=== PATIENT | female | born 1990 | race Caucasian/White ===

== ENCOUNTER → 2016-10-04 | Outpatient (CLI) | payer OTHER ==
--- NOTE | 2016-10-04 17:29 | US ---
EXAMINATION TYPE: US venous doppler duplex LE LT DATE OF EXAM: 10/04/2016 4:51 PM COMPARISON: 10/12/2013 rt venous CLINICAL HISTORY: LLE Swelling R22.42, Hx of DVT V12.51. SIDE PERFORMED: Left TECHNIQUE: The lower extremity deep venous system is examined utilizing real time linear array sonog maverick with graded compression, doppler sonography and color-flow sonography. VESSELS IMAGED: External Iliac Vein (EIV) Common Femoral Vein Deep Femoral Vein Greater Saphenous Vein * Femoral Vein Popliteal Vein (* superficial vessels) Left Leg: Negative for DVT IMPRESSION: Grayscale, color doppler, spectral doppler imaging performed of the deep veins of the lo wer extremities. There is normal flow, compressibility, vascular waveforms bilaterally. No evidence of deep venous thrombosis in the left leg.
== END | disposition home or self-care (01) ==
LOC: RADUSMAIN 16:07
PROVIDERS: ATTEND Internal Medicine
DX: R22.42 Localized swelling, mass and lump, left lower limb (principal); Z86.718 Personal history of other venous thrombosis and embolism

== ENCOUNTER 2017-08-17 13:50 | Emergency (ER) | payer OTHER ==
[2017-08-17 13:53] VITALS: BP 133/89; PULSE 89; RESP 20; TEMP 98.1
[2017-08-17] MEDS ORDERED: KETOROLAC 30 MG/ML 1 ML VIAL IM STA (14:38)
--- NOTE | 2017-08-17 14:39 | ED ---
Skin/Abscess/FB HPI - General Chief complaint: Skin/Abscess/Foreign Body Stated complaint: Lump in Arm pit Time Seen by Provider: 08/17/17 14:00 Source: patient Mode of arrival: ambulatory Limitations: no limitations - History of Present Illness Initial comments: Patient is a 26-year-old female presenting for abscess in the right arm. She states that she has "HS" and that for the last 3 days, she has had this lesion on the right axilla. She denies any fevers or chills states that this is happened before and usually bear incised and drained and given Keflex. - Related Data Home Medications Medication Instructions Recorded Confirmed Levothyroxine Sodium [Synthroid] 50 mcg PO DAILY 09/18/13 03/07/16 Acetaminophen Tab [Tylenol Tab] 1,000 mg PO Q6HR PRN 03/07/16 03/07/16 Previous Rx's Medication Instructions Recorded Ondansetron Odt [Zofran Odt] 4 mg PO Q8HR PRN #10 tab 03/07/16 Clindamycin HCl 300 mg PO Q12HR 7 Days #14 cap 08/17/17 Allergies Allergy/AdvReac Type Severity Reaction Status Date / Time No Known Allergies Allergy Verified 08/17/17 13:53 Review of Systems ROS Statement: Those systems with pertinent positive or pertinent negative responses have been documented in the HPI. Constitutional: Negative for chills, fatigue and fever. HENT: Negative for congestion. Respiratory: Negative for chest tightness, shortness of breath and wheezing. Negative for cough Cardiovascular: Negative for chest pain and palpitations. Gastrointestinal: Negative for abdominal pain. Negative for abdominal distention , diarrhea, nausea and vomiting. Genitourinary: Negative for dysuria. Musculoskeletal: Negative for back pain, neck pain and neck stiffness. Skin: Positive for abscess the right adnexal. Neurological: Negative for dizziness, speech difficulty, weakness and light- headedness. Psychiatric/Behavioral: Negative for agitation and confusion. The patient is not nervous/anxious. ROS Other: All systems not noted in ROS Statement are negative. Past Medical History Past Medical History: Deep Vein Thrombosis (DVT), Thyroid Disorder History of Any Multi-Drug Resistant Organisms: None Reported Past Surgical History: Section Past Psychological History: No Psychological Hx Reported Smoking Status: Never smoker Past Alcohol Use History: None Reported Past Drug Use History: None Reported General Exam - General Exam Comments Initial Comments: Constitutional: Pt is oriented to person, place, and time. Pt appears well- developed and well-nourished. No distress. HENT: Head: Normocephalic and atraumatic. Eyes: EOM are normal. Neck: Normal range of motion. Neck supple. Cardiovascular: Normal rate, regular rhythm, S1 normal, S2 normal and normal heart sounds. Exam reveals no gallop and no friction rub. No murmur heard. Pulmonary/Chest: Effort normal and breath sounds normal. No tachypnea and no bradypnea. No respiratory distress. No wheezes or rales noted. Abdominal: Soft. Bowel sounds are normal. Pt exhibits no shifting dullness, no distension, no pulsatile liver, no fluid wave, no abdominal bruit and no ascites. There is no tenderness. There is no rigidity, no rebound, no guarding, no tenderness at McBurney's point and negative White's sign. Musculoskeletal: Normal range of motion. Neurological: Pt is alert and oriented to person, place, and time. No cranial nerve deficit. Skin: Skin is warm and dry. No rash noted. Pt is not diaphoretic. Abscess measuring 5 mm in diameter in the right axilla. There is minimal fluctuance and mild erythema in the surrounding tissue. No evidence of deep tissue infection. Psychiatric: Pt has a normal mood and affect. Pt behavior is normal. Thought content normal. Limitations: no limitations Course Vital Signs 08/17/17 13:52 Temperature 98.1 F Pulse Rate 89 Respiratory 20 Rate Blood Pressure 133/89 O2 Sat by Pulse 100 Oximetry Procedures - Incision & Drainage Consent Obtained: verbal consent Time Out Performed?: Yes Site: other Size (cm): 1 Anesthetic Used: lidocaine 1% Amount (mLs): 2 I&D Cleaning Method: Chloroprep Sterile Field Used?: Yes Scalpel Used: #11 Needle Aspiration Performed?: No Irrigation Performed?: Yes I&D Drainage Obtained: Pus, Blood Packing: Plain Culture Obtained?: No Patient Tolerated Procedure: well (At), no complications Medical Decision Making - Medical Decision Making I&D was performed as noted in the procedure note. Patient was given a prescription for Keflex. There is no overt signs of sepsis in patient was advised to follow up with PCP in the next 1-2 days. Patient was agreeable plan. Disposition Clinical Impression: Abscess of axilla, right Disposition: HOME SELF-CARE Condition: Good Instructions: Abscess Incision and Drainage (ED) Prescriptions: Clindamycin HCl 300 mg PO Q12HR 7 Days #14 cap Is patient prescribed a controlled substance at d/c from ED?: No Referrals: Erica Blair MD [Primary Care Provider] - 1-2 days Time of Disposition: 14:38
== END 2017-08-17 14:54 | disposition home or self-care (01) ==
LOC: EC 13:50
DX: L02.411 Cutaneous abscess of right axilla (principal); E07.9 Disorder of thyroid, unspecified; Z79.899 Other long term (current) drug therapy
CPT/HCPCS: 99283; 10060; 96372; J1885

== ENCOUNTER 2018-01-05 17:33 | Emergency (ER) | payer OTHER ==
[2018-01-05] MEDS ORDERED: KETOROLAC 30 MG/ML 1 ML VIAL IVP STA (18:11)
[2018-01-05] MEDS ORDERED: ONDANSETRON 4 MG/2 ML VIAL IVP STA (18:11)
[2018-01-05] MEDS ORDERED: SODIUM CHLORIDE 0.9% 1,000 ML IV STA (18:11)
--- NOTE | 2018-01-05 18:14 | ED ---
General Adult HPI - General Chief complaint: Abdominal Pain Stated complaint: Vomiting/ca pt Time Seen by Provider: 01/05/18 18:02 Source: patient, RN notes reviewed Mode of arrival: ambulatory Limitations: no limitations - History of Present Illness Initial comments: This is a 27-year-old female who presents to the emergency department with chief complaint of nausea and vomiting. Patient states that she was diagnosed with cervical cancer in May. She states she started oral chemotherapy treatment 2 weeks ago at [facility]. Patient states that she worked last night. When she woke up this afternoon she felt nauseous and had a headache. She reports having 4 episodes of vomiting throughout the day today. Denies any fevers or chills, chest pain or shortness of breath, abdominal pain, dysuria or hematuria. Patient states she took Advil but it did not help her headache. - Related Data Home Medications Medication Instructions Recorded Confirmed Levothyroxine Sodium [Synthroid] 50 mcg PO DAILY 09/18/13 03/07/16 Acetaminophen Tab [Tylenol Tab] 1,000 mg PO Q6HR PRN 03/07/16 03/07/16 Previous Rx's Medication Instructions Recorded Ondansetron Odt [Zofran Odt] 4 mg PO Q8HR PRN #10 tab 03/07/16 Clindamycin HCl 300 mg PO Q12HR 7 Days #14 cap 08/17/17 Allergies Allergy/AdvReac Type Severity Reaction Status Date / Time No Known Allergies Allergy Verified 01/05/18 17:41 Review of Systems ROS Statement: Those systems with pertinent positive or pertinent negative responses have been documented in the HPI. ROS Other: All systems not noted in ROS Statement are negative. Past Medical History Past Medical History: Deep Vein Thrombosis (DVT), Thyroid Disorder Additional Past Medical History / Comment(s): cervical cancer (May 2017) History of Any Multi-Drug Resistant Organisms: None Reported Past Surgical History: Section, Tubal Ligation Past Psychological History: No Psychological Hx Reported Smoking Status: Never smoker Past Alcohol Use History: None Reported Past Drug Use History: None Reported General Exam - General Exam Comments Initial Comments: General: Awake and alert, well-developed; in no apparent distress. Sitting comfortably on ED stretcher with lights dimmed. HEENT: Head atraumatic, normocephalic. Pupils are equal, round and reactive to light. Extraocular movements intact. Oropharynx moist without erythema or exudate. Neck: Supple. Normal ROM. Cardiovascular: Regular rate and rhythm. No murmurs, rubs or gallops. Chest symmetrical. Respiratory: Lungs clear to auscultation bilaterally. No wheezes, rales or rhonchi. Normal respiratory effort with no use of accessory muscles. Abdomen: Soft, non-tender, non-distended. No rigidity, rebound or guarding. Normal bowel sounds in all 4 quadrants. Musculoskeletal: Normal ROM, no tenderness bilateral upper and lower extremities. Skin: [place], warm and dry without rashes or lesions. Neurological: Alert and oriented x3. CN II-XII grossly intact. Speech is fluent and answers are appropriate. No focal neuro deficits. Psychiatric: Normal mood and affect. No overt signs of depression or anxiety noted. Limitations: no limitations Course Vital Signs 01/05/18 17:38 Temperature 98.2 F Pulse Rate 82 Respiratory 18 Rate Blood Pressure 154/97 O2 Sat by Pulse 98 Oximetry Medical Decision Making - Medical Decision Making This is a 27-year-old female who presents to the emergency department with chief complaint of nausea and vomiting. Patient started chemotherapy for cervical cancer 2 weeks ago. She has had 1 round of oral chemo. She states that today she developed a headache, nausea and vomiting. Patient given fluids , toradol and zofran. CBC reveals a hemoglobin of 10.5 which is consistent with previous lab studies. UA and CMP are unremarkable. Patient reports significant improvement in her symptoms and is ready to be discharged home. Vital signs are stable and she is in no acute distress. Recommended she follow up with her oncologist tomorrow. She is in agreement and voices understanding. All questions were answered. - Lab Data Result diagrams: 01/05/18 18:45 01/05/18 18:45 Lab Results 01/05/18 01/05/18 01/05/18 Range/Units 18:45 18:45 19:05 WBC 8.6 (3.8-10.6) k/uL RBC 4.46 (3.80-5.40) m/uL Hgb 10.5 L (11.4-16.0) gm/dL Hct 32.3 L (34.0-46.0) % MCV 72.4 L (80.0-100.0) fL MCH 23.5 L (25.0-35.0) pg MCHC 32.4 (31.0-37.0) g/dL RDW 18.1 H (11.5-15.5) % Plt Count 395 (150-450) k/uL Neutrophils % 82 % Lymphocytes % 12 % Monocytes % 4 % Eosinophils % 1 % Basophils % 0 % Neutrophils # 7.0 (1.3-7.7) k/uL Lymphocytes # 1.1 (1.0-4.8) k/uL Monocytes # 0.3 (0-1.0) k/uL Eosinophils # 0.1 (0-0.7) k/uL Basophils # 0.0 (0-0.2) k/uL Hypochromasia Moderate Anisocytosis Slight Microcytosis Moderate Sodium 138 (137-145) mmol/L Potassium 4.4 (3.5-5.1) mmol/L Chloride 108 H (98-107) mmol/L Carbon Dioxide 24 (22-30) mmol/L Anion Gap 6 mmol/L BUN 13 (7-17) mg/dL Creatinine 0.75 (0.52-1.04) mg/dL Est GFR (CKD-EPI)AfAm >90 (>60 ml/min/1.73 sqM) Est GFR (CKD-EPI)NonAf >90 (>60 ml/min/1.73 sqM) Glucose 97 (74-99) mg/dL Calcium 9.2 (8.4-10.2) mg/dL Total Bilirubin 0.4 (0.2-1.3) mg/dL AST 28 (14-36) U/L ALT 22 (9-52) U/L Alkaline Phosphatase 79 (38-126) U/L Total Protein 7.6 (6.3-8.2) g/dL Albumin 4.2 (3.5-5.0) g/dL Urine Color Light Yellow Urine Appearance Cloudy H (Clear) Urine pH 5.5 (5.0-8.0) Ur Specific [place] 1.007 (1.001-1.035) Urine Protein Negative (Negative) Urine Glucose (UA) Negative (Negative) Urine Ketones Negative (Negative) Urine Blood Negative (Negative) Urine Nitrite Negative (Negative) Urine Bilirubin Negative (Negative) Urine Urobilinogen <2.0 (<2.0) mg/dL Ur Leukocyte Esterase Trace H (Negative) Urine RBC 1 (0-5) /hpf Urine WBC 4 (0-5) /hpf Ur Squamous Epith Cells 5 H (0-4) /hpf Urine Bacteria Rare H (None) /hpf Urine Mucus Rare H (None) /hpf Disposition Clinical Impression: Nausea and vomiting Disposition: HOME SELF-CARE Condition: Good Instructions: Acute Nausea and Vomiting (ED), Chemo Induced Nausea and Vomiting (ED) Additional Instructions: As discussed, please follow-up with your oncologist tomorrow morning. Please follow up with primary care provider within 1-2 days. Return to emergency department if symptoms should worsen or any concerns arise. Is patient prescribed a controlled substance at d/c from ED?: No Referrals: Erica Blair MD [Primary Care Provider] - 1-2 days Time of Disposition: 19:42
[2018-01-05 19:07] LABS: Anisocytosis Slight; Basophils % (A) 0 %; Eosinophils # (A) 0.1 k/uL (0-0.7); Eosinophils % (A) 1 %; HCT 32.3 % (34.0-46.0); HGB 10.5 gm/dL (11.4-16.0); Hypochromasia Moderate; Lymphocytes # (A) 1.1 k/uL (1.0-4.8); Lymphocytes % (A) 12 %; MCH 23.5 pg (25.0-35.0); MCHC 32.4 g/dL (31.0-37.0); MCV 72.4 fL (80.0-100.0); Mean Platelet Volume 6.4; Microcytosis Moderate; Monocytes # (A) 0.3 k/uL (0-1.0); Monocytes % (A) 4 %; Neutrophils % (A) 82 %; Platelet Count 395 k/uL (150-450); RBC 4.46 m/uL (3.80-5.40); RDW 18.1 % (11.5-15.5); WBC 8.6 k/uL (3.8-10.6)
[2018-01-05 19:19] LABS: ALT 22 U/L (9-52); AST 28 U/L (14-36); Albumin 4.2 g/dL (3.5-5.0); Alkaline Phosphatase 79 U/L (38-126); Anion Gap 6 mmol/L; Blood Urea Nitrogen 13 mg/dL (7-17); Calcium 9.2 mg/dL (8.4-10.2); Carbon Dioxide 24 mmol/L (22-30); Chloride 108 mmol/L (98-107); Glucose 97 mg/dL (74-99); Potassium 4.4 mmol/L (3.5-5.1); Sodium 138 mmol/L (137-145); Total Bilirubin 0.4 mg/dL (0.2-1.3); Total Protein 7.6 g/dL (6.3-8.2)
[2018-01-05 19:28] LABS: Appearance,Urine Cloudy (Clear); Bacteria,Urine Rare /hpf; Bilirubin,Urine Negative (Negative); Blood,Urine Negative (Negative); Color,Urine Light Yellow; Glucose,Urine (UA) Negative (Negative); Ketones,Urine Negative (Negative); Leukocyte Esterase,Urine Trace (Negative); Mucus,Urine Rare /hpf; Nitrite,Urine Negative (Negative); PH, Urine 5.5 (5.0-8.0); Protein,Urine Negative (Negative); RBC,Urine 1 /hpf (0-5); Specific Gravity,Urine 1.007 (1.001-1.035); Squamous Epithelial Cell,Urine 5 /hpf (0-4); Urobilinogen,Urine <2.0 mg/dL (<2.0); WBC,Urine 4 /hpf (0-5)
[2018-01-05 19:59] VITALS: BP 148/80; PULSE 88; RESP 16; TEMP 97.3
== END 2018-01-05 19:58 | disposition home or self-care (01) ==
LOC: EC 17:33
DX: R11.2 Nausea with vomiting, unspecified (principal); R51 Headache; E07.9 Disorder of thyroid, unspecified; Z85.41 Personal history of malignant neoplasm of cervix uteri; Z79.899 Other long term (current) drug therapy
CPT/HCPCS: 99284; 96374; 96375; 96361; 36415; 80053; 85025; 81001; J2405; J1885

== ENCOUNTER 2018-01-20 07:49 | Emergency (ER) | payer OTHER ==
[2018-01-20 07:57] VITALS: BP 144/94; PULSE 90; RESP 16; TEMP 98
--- NOTE | 2018-01-20 08:24 | ED ---
General Adult HPI - General Chief complaint: Upper Respiratory Infection Stated complaint: cough, headache Time Seen by Provider: 01/20/18 07:59 Source: patient, RN notes reviewed Mode of arrival: ambulatory Limitations: no limitations - History of Present Illness Initial comments: Patient 27-year-old female presented to the emergency room today with a chief complaint of cough congestion over the last 2 weeks. Mother does admit that she had cough congestion with fever starting 2 weeks ago. She states fevers, weight but she still left with the cough congestion and feeling of swollen glands. Patient does admit that she cough has been dry at this time. She denies any nausea vomiting currently. Denies any current temperatures. States appetites been well. States that her son has similar symptoms at home. Denies any other complaints. Patient denies any recent shortness of breath, chest pain , back pain, abdominal pain, nausea or vomiting, numbness or tingling, headaches or visual changes, or any other complaints. - Related Data Home Medications Medication Instructions Recorded Confirmed Ferrous Sulfate [Feosol] 325 mg PO DAILY 01/20/18 01/20/18 Levothyroxine Sodium [Synthroid] 75 mcg PO DAILY 01/20/18 01/20/18 Vitamin C/Biotin [Hair, Skin and 1 tab PO DAILY 01/20/18 01/20/18 Nails] Previous Rx's Medication Instructions Recorded Benzonatate [Tessalon Perles] 100 mg PO TID PRN #20 capsule 01/20/18 Allergies Allergy/AdvReac Type Severity Reaction Status Date / Time No Known Allergies Allergy Verified 01/20/18 08:12 Review of Systems ROS Statement: Those systems with pertinent positive or pertinent negative responses have been documented in the HPI. ROS Other: All systems not noted in ROS Statement are negative. Past Medical History Past Medical History: Deep Vein Thrombosis (DVT), Thyroid Disorder Additional Past Medical History / Comment(s): cervical cancer (May 2017) History of Any Multi-Drug Resistant Organisms: None Reported Past Surgical History: Section, Tubal Ligation Past Psychological History: No Psychological Hx Reported Smoking Status: Never smoker Past Alcohol Use History: None Reported Past Drug Use History: None Reported General Exam - General Exam Comments Initial Comments: General: The patient is awake and alert, in no distress, and does not appear acutely ill. Eye: Pupils are equal, round and reactive to light. Extra-ocular movements are intact. No nystagmus. There is normal conjunctiva bilaterally. No signs of icterus. Ears, nose, mouth and throat: There are moist mucous membranes and no oral lesions. Neck: The neck is supple, there is no tenderness or JVD. Cardiovascular: There is a regular rate and rhythm. No murmur, rub or gallop is appreciated. Respiratory: Lungs are clear to auscultation, respirations are non-labored, breath sounds are equal. No wheezes, stridor, rales, or rhonchi. Musculoskeletal: Normal ROM, no tenderness. Sensation intact. Strength 5/5. Pulses equal bilaterally 2+. Neurological: A&O x 3. CN II-XII intact, There are no obvious motor or sensory deficits. Coordination appears grossly intact. Speech is normal. Skin: Skin is warm and dry and no rashes or lesions are noted. Psychiatric: Cooperative, appropriate mood & affect, normal judgment. Limitations: no limitations Course Vital Signs 01/20/18 07:54 Temperature 98.0 F Pulse Rate 90 Respiratory 16 Rate Blood Pressure 144/94 O2 Sat by Pulse 98 Oximetry Medical Decision Making - Medical Decision Making Chest x-ray negative. Patient was given dose of steroids here in the emergency room advised to continue HOME. Disposition Clinical Impression: Upper respiratory infection Disposition: HOME SELF-CARE Condition: Good Instructions: Upper Respiratory Infection (ED) Additional Instructions: Please use medication as discussed. Please follow-up with family doctor in the next 2 days of symptoms have not improved. Please return to emergency room if the symptoms increase or worsen or for any other concerns. Prescriptions: Benzonatate [Tessalon Perles] 100 mg PO TID PRN #20 capsule PRN Reason: Cough Is patient prescribed a controlled substance at d/c from ED?: No Referrals: Erica Blair MD [Primary Care Provider] - 1-2 days Time of Disposition: 09:00
--- NOTE | 2018-01-20 08:26 | XR ---
EXAMINATION TYPE: XR chest 2V DATE OF EXAM: 01/20/2018 COMPARISON: 02/07/2015 HISTORY: Cough and congestion TECHNIQUE: Frontal and lateral views of the chest are obtained. FINDINGS: Overlying soft tissues partially through the lower lobes and creating increased hazy densi ty, however no focal opacity seen on the lateral view. There is no focal air space opacity, pleural e ffusion, or pneumothorax seen. The cardiac silhouette size is within normal limits. The osseous st ructures are intact. IMPRESSION: No acute cardiopulmonary process.
[2018-01-20] MEDS ORDERED: DEXAMETHASONE SOD PHOSPHATE 10 MG/ML 1 ML VIAL PO STA (08:59)
== END 2018-01-20 09:45 | disposition home or self-care (01) ==
LOC: EC 07:49
DX: J06.9 Acute upper respiratory infection, unspecified (principal); E07.9 Disorder of thyroid, unspecified; Z79.899 Other long term (current) drug therapy
CPT/HCPCS: 71046; 99284; J1100

== ENCOUNTER 2018-02-19 09:44 | Emergency (ER) | payer OTHER ==
[2018-02-19 09:54] VITALS: BP 122/81; PULSE 97; RESP 18; TEMP 97.8
[2018-02-19] MEDS ORDERED: KETOROLAC 60 MG/2 ML VIAL IM STA (10:26)
--- NOTE | 2018-02-19 10:32 | ED ---
Lower Extremity Injury HPI - General Chief Complaint: Extremity Injury, Lower Stated Complaint: RT SAMSON PAIN Time Seen by Provider: 02/19/18 10:19 Source: patient, RN notes reviewed Mode of arrival: ambulatory Limitations: no limitations - History of Present Illness Initial Comments: 27-year-old female presents emergency Department chief complaint of right knee pain. Patient states has been painful for last 3 weeks. Patient states is worse with movement better at rest. She is concern as she's had 2 prior DVTs only when she was . Patient denies any chest or shortness breath. Denies any swelling or redness to her right leg. Patient states that she feels pain from above and below her knee. Patient does admit that she is a [facility] [employer] states that she constantly is up-and-down, kneeling down on her knees which makes his symptoms worse. Patient's been taking Tylenol and Motrin nothing this morning but has not been helping. - Related Data Home Medications Medication Instructions Recorded Confirmed Ibuprofen [Advil] 400 mg PO Q8HR PRN 02/19/18 02/19/18 Levothyroxine Sodium [Synthroid] 25 mcg PO DAILY 02/19/18 02/19/18 Previous Rx's Medication Instructions Recorded Ibuprofen [Motrin] 600 mg PO Q8HR PRN #30 tab 02/19/18 Allergies Allergy/AdvReac Type Severity Reaction Status Date / Time No Known Allergies Allergy Verified 02/19/18 10:57 Review of Systems ROS Statement: Those systems with pertinent positive or pertinent negative responses have been documented in the HPI. ROS Other: All systems not noted in ROS Statement are negative. Past Medical History Past Medical History: Deep Vein Thrombosis (DVT), Thyroid Disorder Additional Past Medical History / Comment(s): cervical cancer (May 2017) History of Any Multi-Drug Resistant Organisms: None Reported Past Surgical History: Section, Tubal Ligation Past Psychological History: No Psychological Hx Reported Smoking Status: Never smoker Past Alcohol Use History: None Reported Past Drug Use History: None Reported General Exam General appearance: alert, in no apparent distress Head exam: Present: atraumatic, normocephalic, normal inspection Respiratory exam: Present: normal lung sounds bilaterally. Absent: respiratory distress, wheezes, rales, rhonchi, stridor Cardiovascular Exam: Present: regular rate, normal rhythm, normal heart sounds. Absent: systolic murmur, diastolic murmur, rubs, gallop, clicks Extremities exam: Present: other (Right leg for range of motion neurovascular intact pedal pulses equal bilaterally Refill less than 2 seconds there is no laxity there is diffuse tenderness of the right knee primarily in the posterior aspect. There is mild upper calf tenderness.) Skin exam: Present: warm, dry, intact, normal color. Absent: rash Course Vital Signs 02/19/18 09:49 Temperature 97.8 F Pulse Rate 97 Respiratory 18 Rate Blood Pressure 122/81 O2 Sat by Pulse 100 Oximetry Medical Decision Making - Medical Decision Making 19-year-old female presented emergency from for right knee pain. Concern for possible DVT all child was day negative for acute DVT. Patient is right knee sprain. Patient will follow-up with orthopedics. Return parameters were provided Disposition Clinical Impression: Strain of right knee Disposition: HOME SELF-CARE Condition: Stable Instructions: Knee Pain (ED), Knee Sprain (ED) Additional Instructions: Please return to the Emergency Department if symptoms worsen or any other concerns. Prescriptions: Ibuprofen [Motrin] 600 mg PO Q8HR PRN #30 tab PRN Reason: Pain Is patient prescribed a controlled substance at d/c from ED?: No Referrals: Jim Mchugh Jr, DO [Primary Care Provider] - 1-2 days Sean Villagran MD [STAFF PHYSICIAN] - 1-2 days Time of Disposition: 11:38
--- NOTE | 2018-02-19 11:07 | XR ---
EXAMINATION TYPE: XR knee complete RT DATE OF EXAM: 02/19/2018 COMPARISON: None HISTORY: Pain TECHNIQUE: Three-view right knee FINDINGS: No acute fractures are evident. Joint spaces are preserved. No joint effusion is evident. S oft tissues are normal. IMPRESSION: 1. Normal three-view right knee
--- NOTE | 2018-02-19 11:32 | US ---
EXAMINATION TYPE: US venous doppler duplex LE RT DATE OF EXAM: 02/19/2018 11:26 AM COMPARISON: US 2013 CLINICAL HISTORY: Pain. Right knee pain x 3 weeks, history of right leg DVT 2012 and 2008 SIDE PERFORMED: Right TECHNIQUE: The lower extremity deep venous system is examined utilizing real time linear array sonog maverick with graded compression, doppler sonography and color-flow sonography. VESSELS IMAGED: External Iliac Vein (EIV) Common Femoral Vein Deep Femoral Vein Greater Saphenous Vein * Femoral Vein Popliteal Vein Small Saphenous Vein * Proximal Calf Veins (* superficial vessels) Right Leg: Appears negative for DVT IMPRESSION: 1. Right lower extremity ultrasound negative for deep venous thrombosis.
[2018-02-19] MEDS ORDERED: ACET/COD 300 MG/30 MG STARTER PACK 6 TAB BTL PO STA (11:36)
== END 2018-02-19 11:49 | disposition home or self-care (01) ==
LOC: EC 09:44
DX: S83.91XA Sprain of unspecified site of right knee, initial encounter (principal); S86.811A Strain of other muscle(s) and tendon(s) at lower leg level, right leg, initial encounter; E07.9 Disorder of thyroid, unspecified; Z85.41 Personal history of malignant neoplasm of cervix uteri; Z86.718 Personal history of other venous thrombosis and embolism; Z98.51 Tubal ligation status; Z79.899 Other long term (current) drug therapy; X58.XXXA Exposure to other specified factors, initial encounter
CPT/HCPCS: 99284; 96372; 73562; 93971; J1885

== ENCOUNTER 2020-01-05 14:04 | Emergency (ER) | payer OTHER ==
[2020-01-05 14:14] VITALS: BP 138/99; PULSE 107; RESP 18; TEMP 98
--- NOTE | 2020-01-05 14:37 | ED ---
Skin/Abscess/FB HPI - General Chief complaint: Skin/Abscess/Foreign Body Stated complaint: Poss Female Infection Time Seen by Provider: 01/05/20 14:19 Source: patient Mode of arrival: ambulatory Limitations: no limitations - History of Present Illness Initial comments: Patient is a 29-year-old female presenting to the emergency department with complaints of a possible infection. Patient states about 8 days ago she had a uterine ablation and also had 2 spots removed on her suprapubic area, left side that had 2 stitches each. Patient states her had removed 3 of the stitches but was not able to get the last stitch out and she thought the wound looked infected. Patient denies any fever, chills, nausea, vomiting. She states the area is sore but mostly due to where her underwear rubs. She has no further complaints at this time. Her vital signs are stable upon arrival. - Related Data Home Medications Medication Instructions Recorded Confirmed Ibuprofen [Advil] 400 mg PO Q8HR PRN 02/19/18 02/19/18 Levothyroxine Sodium [Synthroid] 25 mcg PO DAILY 02/19/18 02/19/18 Previous Rx's Medication Instructions Recorded Ibuprofen [Motrin] 600 mg PO Q8HR PRN #30 tab 02/19/18 Allergies Allergy/AdvReac Type Severity Reaction Status Date / Time No Known Allergies Allergy Verified 01/05/20 14:13 Review of Systems ROS Statement: Those systems with pertinent positive or pertinent negative responses have been documented in the HPI. ROS Other: All systems not noted in ROS Statement are negative. Past Medical History Past Medical History: Deep Vein Thrombosis (DVT), Hyperlipidemia, Thyroid Disorder Additional Past Medical History / Comment(s): cervical cancer (May 2017) History of Any Multi-Drug Resistant Organisms: None Reported Past Surgical History: Section, Tubal Ligation Past Psychological History: No Psychological Hx Reported Smoking Status: Former smoker Past Alcohol Use History: None Reported Past Drug Use History: None Reported General Exam - General Exam Comments Initial Comments: GENERAL: Patient is well-developed and well-nourished. Patient is nontoxic and in no acute distress. HEAD: Atraumatic, normocephalic. EYES: Pupils equal round and reactive to light, extraocular movements intact, sclera anicteric, conjunctiva are normal. Eyelids were unremarkable. ENT: Nares patent, oropharynx clear without exudates. Moist mucous membranes. NECK: Normal range of motion, supple without lymphadenopathy or JVD. LUNGS: Unlabored respirations. Breath sounds clear to auscultation bilaterally and equal. No wheezes rales or rhonchi. HEART: Regular rate and rhythm without murmurs, rubs or gallops. ABDOMEN: Soft, nontender, normoactive bowel sounds. No guarding, no rebound. No masses appreciated. MUSCULOSKELETAL: Normal extremities with adequate strength and normal range of motion, no pitting or edema. No clubbing or cyanosis. NEUROLOGICAL: Patient is alert and oriented x 3. Symmetrical smile. Normal speech, normal gait. PSYCH: Normal mood, normal affect. SKIN: Warm, Dry, normal turgor, no rashes. Patient had 2 surgical incisions on the left side over suprapubic area that are 0.5 cm in length.. There is one stitch left in one of the wounds. There is no purulent drainage from either of the wounds, the areas look clean, dry. There is some very mild erythema, healing appropriately. Limitations: no limitations Course Vital Signs 01/05/20 14:08 Temperature 98 F Pulse Rate 107 H Respiratory 18 Rate Blood Pressure 138/99 O2 Sat by Pulse 98 Oximetry Procedures - Procedures Initial comment: 1 suture removal from 0.5 cm wound on the left side as suprapubic area. Wound looks clean, dry, no signs of infection at this time. Medical Decision Making - Medical Decision Making Patient is a 29-year-old female here for suture removal on 2 small, 0.5 cm incisions that were performed 8 days ago by her [employer]. The wounds look clean, dry, no signs of infection. There is some very mild erythema, incisions seem to be healing appropriately. I did remove the one stitch. I recommended topical antibiotic twice a day for 4-5 days. She will follow-up with her doctor. Patient stable for discharge. Return parameters were discussed with the patient she verbalized understanding. Disposition Clinical Impression: Visit for suture removal, Wound check, abscess Disposition: HOME SELF-CARE Condition: Stable Instructions (If sedation given, give patient instructions): Acute Wound Care (ED) Additional Instructions: Please return to the Emergency Department if symptoms worsen or any other concerns. Keep area clean and dry. Apply topical antibiotic twice a day for 5 days as discussed. Follow up with your PCP. Is patient prescribed a controlled substance at d/c from ED?: No Referrals: Jim Mchugh Jr, [Primary Care Provider] - 1-2 days
== END 2020-01-05 14:56 | disposition home or self-care (01) ==
LOC: EC 14:04
DX: Z48.01 Encounter for change or removal of surgical wound dressing (principal); N76.0 Acute vaginitis; Z48.02 Encounter for removal of sutures; E07.9 Disorder of thyroid, unspecified; Z79.890 Hormone replacement therapy; Z85.41 Personal history of malignant neoplasm of cervix uteri; Z86.718 Personal history of other venous thrombosis and embolism; Z98.890 Other specified postprocedural states; Z98.51 Tubal ligation status; Z87.891 Personal history of nicotine dependence
CPT/HCPCS: 99283

== ENCOUNTER 2020-03-02 16:25 | Emergency (ER) | payer OTHER ==
--- NOTE | 2020-03-02 17:26 | ED ---
Abdominal Pain HPI - General Chief Complaint: Abdominal Pain Stated Complaint: Female Time Seen by Provider: 03/02/20 16:42 Source: patient Mode of arrival: ambulatory Limitations: no limitations - History of Present Illness Initial Comments: 29-year-old female with history of tubal ligation presenting today for chief complaint of vaginal pain. Patient states that she has had pain with sex and vaginal pain for the past 4 days. She states it has been increasing. Patient does note vaginal discharge denies odors. Patient states she had some spotting that began last night. She denies heavy bleeding. Patient states that she did have a uterine ablation approximately 2 months ago. pt denies nausea, vomiting, upper abdominal pain, chest pain shortness of breath or known . denies unilateral pain. Denies fevers. Patient denies dsyuria, urgency or frequency. Patient has no additional complaints. - Related Data Home Medications Medication Instructions Recorded Confirmed Aspirin/Acetaminophen/Caffeine 1 cap PO BID PRN 03/02/20 03/02/20 [Excedrin Migraine Caplet] Atorvastatin Calcium [Lipitor] 20 mg PO DAILY 03/02/20 03/02/20 Doxycycline Hyclate [Vibramycin] 100 mg PO BID 03/02/20 03/02/20 Ergocalciferol (Vitamin D2) 50,000 unit PO WE 03/02/20 03/02/20 [Drisdol] Escitalopram [Lexapro] 20 mg PO DAILY 03/02/20 03/02/20 Ferrous Sulfate [Feosol] 325 mg PO TID-W/MEALS 03/02/20 03/02/20 Ibuprofen 600 mg PO Q6H PRN 03/02/20 03/02/20 Keto Fat Burn Supplement 1 cap PO DAILY 03/02/20 03/02/20 Levothyroxine Sodium [Euthyrox] 125 mcg PO DAILY 03/02/20 03/02/20 Rimegepant Sulfate [Nurtec Odt] 75 mg PO DAILY PRN 03/02/20 03/02/20 Previous Rx's Medication Instructions Recorded Doxycycline [Vibramycin] 100 mg PO BID 14 Days #28 capsule 03/02/20 metroNIDAZOLE [Flagyl] 500 mg PO BID 14 Days #28 tab 03/02/20 Allergies Allergy/AdvReac Type Severity Reaction Status Date / Time No Known Allergies Allergy Verified 03/02/20 18:19 Review of Systems ROS Statement: Those systems with pertinent positive or pertinent negative responses have been documented in the HPI. ROS Other: All systems not noted in ROS Statement are negative. Past Medical History Past Medical History: Deep Vein Thrombosis (DVT), Hyperlipidemia, Thyroid Disorder Additional Past Medical History / Comment(s): cervical cancer (May 2017) History of Any Multi-Drug Resistant Organisms: None Reported Past Surgical History: Section, Tubal Ligation, Uterine Ablation Past Psychological History: No Psychological Hx Reported Smoking Status: Former smoker Past Alcohol Use History: None Reported Past Drug Use History: None Reported General Exam - General Exam Comments Initial Comments: General: The patient is awake and alert, in no distress, and does not appear acutely ill. Eye: Pupils are equal, round and reactive to light, extra-ocular movements are intact. No nystagmus. There is normal conjunctiva bilaterally. No signs of icterus. Cardiovascular: There is a regular rate and rhythm. No murmur, rub or gallop is appreciated. Respiratory: Lungs are clear to auscultation, respirations are non-labored, breath sounds are equal. No wheezes, stridor, rales, or rhonchi. Gastrointestinal: Soft, non-distended, pain to palpation diffusely of the lower pelvic region, no localized unilateral pain, abdomen without masses or organomegaly noted. There is no rebound or guarding present : diffuse yellow/cream colored vaginal discharge, cervical motion tenderness, no specific odors, no vaginal bleeding noted. no external lesions. Musculoskeletal: Normal ROM, no tenderness. Strength 5/5. Sensation intact. Pulses equal bilaterally 2+. Neurological: A&O x 3. CN II-XII intact, There are no obvious motor or sensory deficits. Coordination appears grossly intact. Speech is normal. Skin: Skin is warm and dry and no rashes or lesions are noted. Psychiatric: Cooperative, appropriate mood & affect, normal judgment. Limitations: no limitations Course Vital Signs 03/02/20 16:37 Temperature 98.3 F Pulse Rate 104 H Respiratory 20 Rate Blood Pressure 146/92 O2 Sat by Pulse 97 Oximetry Medical Decision Making - Lab Data Result diagrams: 03/02/20 17:54 03/02/20 17:54 Lab Results 03/02/20 03/02/20 03/02/20 Range/Units 17:54 17:54 17:54 WBC 9.9 (3.8-10.6) k/uL RBC 5.22 (3.80-5.40) m/uL Hgb 12.9 (11.4-16.0) gm/dL Hct 40.1 (34.0-46.0) % MCV 76.9 L (80.0-100.0) fL MCH 24.7 L (25.0-35.0) pg MCHC 32.0 (31.0-37.0) g/dL RDW 17.5 H (11.5-15.5) % Plt Count 394 (150-450) k/uL MPV 7.2 Neutrophils % 75 % Lymphocytes % 18 % Monocytes % 3 % Eosinophils % 1 % Basophils % 1 % Neutrophils # 7.4 (1.3-7.7) k/uL Lymphocytes # 1.8 (1.0-4.8) k/uL Monocytes # 0.3 (0-1.0) k/uL Eosinophils # 0.1 (0-0.7) k/uL Basophils # 0.1 (0-0.2) k/uL Anisocytosis Slight Microcytosis Slight Sodium 137 (137-145) mmol/L Potassium 4.0 (3.5-5.1) mmol/L Chloride 105 (98-107) mmol/L Carbon Dioxide 24 (22-30) mmol/L Anion Gap 8 mmol/L BUN 10 (7-17) mg/dL Creatinine 0.83 (0.52-1.04) mg/dL Est GFR (CKD-EPI)AfAm >90 (>60 ml/min/1.73 sqM) Est GFR (CKD-EPI)NonAf >90 (>60 ml/min/1.73 sqM) Glucose 99 (74-99) mg/dL Calcium 9.1 (8.4-10.2) mg/dL Total Bilirubin 0.5 (0.2-1.3) mg/dL AST 24 (14-36) U/L ALT 20 (4-34) U/L Alkaline Phosphatase 88 (38-126) U/L Total Protein 7.7 (6.3-8.2) g/dL Albumin 4.4 (3.5-5.0) g/dL Urine Color Urine Appearance (Clear) Urine pH (5.0-8.0) Ur Specific [place] (1.001-1.035) Urine Protein (Negative) Urine Glucose (UA) (Negative) Urine Ketones (Negative) Urine Blood (Negative) Urine Nitrite (Negative) Urine Bilirubin (Negative) Urine Urobilinogen (<2.0) mg/dL Ur Leukocyte Esterase (Negative) Urine RBC (0-5) /hpf Urine WBC (0-5) /hpf Ur Squamous Epith Cells (0-4) /hpf Urine Mucus (None) /hpf Urine HCG, Qual Not Detected (Not Detectd) 03/02/20 Range/Units 18:03 WBC (3.8-10.6) k/uL RBC (3.80-5.40) m/uL Hgb (11.4-16.0) gm/dL Hct (34.0-46.0) % MCV (80.0-100.0) fL MCH (25.0-35.0) pg MCHC (31.0-37.0) g/dL RDW (11.5-15.5) % Plt Count (150-450) k/uL MPV Neutrophils % % Lymphocytes % % Monocytes % % Eosinophils % % Basophils % % Neutrophils # (1.3-7.7) k/uL Lymphocytes # (1.0-4.8) k/uL Monocytes # (0-1.0) k/uL Eosinophils # (0-0.7) k/uL Basophils # (0-0.2) k/uL Anisocytosis Microcytosis Sodium (137-145) mmol/L Potassium (3.5-5.1) mmol/L Chloride (98-107) mmol/L Carbon Dioxide (22-30) mmol/L Anion Gap mmol/L BUN (7-17) mg/dL Creatinine (0.52-1.04) mg/dL Est GFR (CKD-EPI)AfAm (>60 ml/min/1.73 sqM) Est GFR (CKD-EPI)NonAf (>60 ml/min/1.73 sqM) Glucose (74-99) mg/dL Calcium (8.4-10.2) mg/dL Total Bilirubin (0.2-1.3) mg/dL AST (14-36) U/L ALT (4-34) U/L Alkaline Phosphatase (38-126) U/L Total Protein (6.3-8.2) g/dL Albumin (3.5-5.0) g/dL Urine Color Yellow Urine Appearance Clear (Clear) Urine pH 6.0 (5.0-8.0) Ur Specific [place] 1.020 (1.001-1.035) Urine Protein Trace H (Negative) Urine Glucose (UA) Negative (Negative) Urine Ketones Negative (Negative) Urine Blood Negative (Negative) Urine Nitrite Negative (Negative) Urine Bilirubin Negative (Negative) Urine Urobilinogen <2.0 (<2.0) mg/dL Ur Leukocyte Esterase Small H (Negative) Urine RBC 3 (0-5) /hpf Urine WBC 9 H (0-5) /hpf Ur Squamous Epith Cells 2 (0-4) /hpf Urine Mucus Rare H (None) /hpf Urine HCG, Qual (Not Detectd) Disposition Clinical Impression: Vaginal discharge, Pelvic pain Disposition: HOME SELF-CARE Condition: Good Instructions (If sedation given, give patient instructions): Pelvic Inflammatory Disease (ED) Additional Instructions: Please use medication as discussed. Please follow-up with family doctor in the next 2 days. Please return to emergency room if the symptoms increase or worsen or for any other concerns. Prescriptions: metroNIDAZOLE [Flagyl] 500 mg PO BID 14 Days #28 tab Doxycycline [Vibramycin] 100 mg PO BID 14 Days #28 capsule Is patient prescribed a controlled substance at d/c from ED?: No Referrals: Jim Mchugh Jr, DO [Primary Care Provider] - 1-2 days Lucas Horne DO [REFERRING] - 1-2 days Time of Disposition: 19:07
[2020-03-02] MEDS ORDERED: HYDROmorphone 0.5 MG/0.5 ML SYRINGE IVP STA (17:29)
[2020-03-02] MEDS ORDERED: AZITHROMYCIN 500 MG TAB PO STA (17:31)
[2020-03-02] MEDS ORDERED: cefTRIAXone IN SWFI 1,000 MG/10 ML SYRINGE IVP STA (17:31)
[2020-03-02 18:08] LABS: Anisocytosis Slight; Basophils # (A) 0.1 k/uL (0-0.2); Basophils % (A) 1 %; Eosinophils # (A) 0.1 k/uL (0-0.7); Eosinophils % (A) 1 %; HCT 40.1 % (34.0-46.0); HGB 12.9 gm/dL (11.4-16.0); Lymphocytes # (A) 1.8 k/uL (1.0-4.8); Lymphocytes % (A) 18 %; MCH 24.7 pg (25.0-35.0); MCV 76.9 fL (80.0-100.0); Mean Platelet Volume 7.2; Microcytosis Slight; Monocytes # (A) 0.3 k/uL (0-1.0); Monocytes % (A) 3 %; Neutrophils # (A) 7.4 k/uL (1.3-7.7); Neutrophils % (A) 75 %; Platelet Count 394 k/uL (150-450); RBC 5.22 m/uL (3.80-5.40); RDW 17.5 % (11.5-15.5); WBC 9.9 k/uL (3.8-10.6)
[2020-03-02 18:18] LABS: ALT 20 U/L (4-34); AST 24 U/L (14-36); African American GFR (CKD) >90 (>60 ml/min/1.73 sqM); Albumin 4.4 g/dL (3.5-5.0); Alkaline Phosphatase 88 U/L (38-126); Anion Gap 8 mmol/L; Blood Urea Nitrogen 10 mg/dL (7-17); Calcium 9.1 mg/dL (8.4-10.2); Carbon Dioxide 24 mmol/L (22-30); Chloride 105 mmol/L (98-107); Glucose 99 mg/dL (74-99); Non-African American GFR(CKD) >90 (>60 ml/min/1.73 sqM); Sodium 137 mmol/L (137-145); Total Bilirubin 0.5 mg/dL (0.2-1.3); Total Protein 7.7 g/dL (6.3-8.2)
[2020-03-02 18:43] LABS: Appearance,Urine Clear (Clear); Bilirubin,Urine Negative (Negative); Blood,Urine Negative (Negative); Color,Urine Yellow; Glucose,Urine (UA) Negative (Negative); Ketones,Urine Negative (Negative); Leukocyte Esterase,Urine Small (Negative); Mucus,Urine Rare /hpf; Nitrite,Urine Negative (Negative); Protein,Urine Trace (Negative); RBC,Urine 3 /hpf (0-5); Squamous Epithelial Cell,Urine 2 /hpf (0-4); Urobilinogen,Urine <2.0 mg/dL (<2.0); WBC,Urine 9 /hpf (0-5)
--- NOTE | 2020-03-02 18:55 | US ---
EXAMINATION TYPE: US pelvis comp w/tv w/doppler DATE OF EXAM: 03/02/2020 COMPARISON: US CLINICAL HISTORY: pain. Vaginal pain x 4 days. Hx recent endometrial ablation, tubal ligation, 2 C-Se ctions. . TECHNIQUE: Transvaginal (TV) and Transabdominal (TA) . Transabdominal sonographic images of the pel vis were acquired. Transvaginal sonographic images were medically necessary to better assess the fol lowing anatomy: left ovary. Date of LMP: 02/05/2020. EXAM MEASUREMENTS: Uterus: 7.6 x 6.0 x 4.8 cm Endometrial Stripe: Limited, measured at 1.16 cm Right Ovary: 4.5 x 2.8 x 2.5 cm Left Ovary: 3.4 x 2.2 x 2.0 cm 1. Uterus: Cervix appears anteflexed, uterus appears anteverted. Appears heterogeneous. Complex are a seen in cervix measurin.0 x 0.7 x 0.6 cm. 2. Endometrium: Slightly limited, measured at 1.16 cm. 3. Right Ovary: Appears enlarged. Hypoechoic-anechoic area seen measurin.4 x 1.7 x 2.1 cm. 4. Left Ovary: Subcentimeter anechoic areas seen. Spectral, color and waveform doppler imaging shows arterial and venous flow within the ovaries; the re is no evidence for ovarian torsion. 5. Bilateral Adnexa: Appear to be wnl. 6. Posterior cul-de-sac: Anechoic fluid seen measuring approximately 3.8 x 2.1 x 1.7 cm. IMPRESSION: There is mild free fluid in the cul-de-sac. No evidence of ovarian torsion. No solid adnexal mass. Ce rvical cyst noted.
[2020-03-02] MEDS ORDERED: ACET/COD 300 MG/30 MG STARTER PACK 6 TAB BTL PO STA (19:07)
[2020-03-02 19:39] VITALS: BP 137/78; PULSE 78; RESP 18; TEMP 98.2
== END 2020-03-02 19:39 | disposition home or self-care (01) ==
LOC: EC 16:25
DX: R10.2 Pelvic and perineal pain (principal); N89.8 Other specified noninflammatory disorders of vagina; E78.5 Hyperlipidemia, unspecified; E07.9 Disorder of thyroid, unspecified; Z79.82 Long term (current) use of aspirin; Z79.890 Hormone replacement therapy; Z79.899 Other long term (current) drug therapy; Z98.51 Tubal ligation status; Z85.41 Personal history of malignant neoplasm of cervix uteri; Z86.718 Personal history of other venous thrombosis and embolism; Z87.891 Personal history of nicotine dependence
CPT/HCPCS: 36415; 80053; 85025; 81001; 81025; 87808; 87491; 87591; 87070; 93976; 76856; 76830; 99284; 96374; 96375; J0696; J1170

== ENCOUNTER 2020-06-07 04:24 | Emergency (ER) | payer OTHER ==
[2020-06-07 04:32] VITALS: TEMP 98.3
[2020-06-07] MEDS ORDERED: KETOROLAC 15 MG/ML 1 ML VIAL IVP STA (04:56)
[2020-06-07] MEDS ORDERED: diphenhydrAMINE 50 MG/ML 1 ML VIAL IVP STA (04:56)
[2020-06-07] MEDS ORDERED: SODIUM CHLORIDE 0.9% 1,000 ML IV STA (04:56)
[2020-06-07] MEDS ORDERED: PROCHLORPERAZINE INJ 10 MG/2 ML VIAL IVP STA (04:56)
--- NOTE | 2020-06-07 04:57 | ED ---
Headache HPI - General Chief Complaint: Headache Stated Complaint: headache,vomiting Time Seen by Provider: 06/07/20 04:25 Source: RN notes reviewed, old records reviewed Mode of arrival: ambulatory Limitations: no limitations - History of Present Illness Initial Comments: This is a 29-year-old female DF for evaluation patient Dese for evaluation of headache. Patient is no diagnosis of migraine with states is her migraine headaches. No trauma, no fevers. No travel history no sick contacts. Patient has no focal neurological evaluation Saturday but this headache is and persistent with unable due to control with medications at home MD Complaint: headache, "migraine" -: days(s) (2) Onset Description: gradual Location: right, frontal Severity: moderate Severity scale (1-10): 4 Quality: throbbing, pulsatile Consistency: constant Improves With: nothing Worsens With: none Context: occurred with exertion/activity Associated Symptoms: nausea, vomiting Other Symptoms: other (none) Treatments Prior to Arrival: none - Related Data Home Medications Medication Instructions Recorded Confirmed Aspirin/Acetaminophen/Caffeine 1 cap PO BID PRN 03/02/20 03/02/20 [Excedrin Migraine Caplet] Atorvastatin Calcium [Lipitor] 20 mg PO DAILY 03/02/20 03/02/20 Doxycycline Hyclate [Vibramycin] 100 mg PO BID 03/02/20 03/02/20 Ergocalciferol (Vitamin D2) 50,000 unit PO WE 03/02/20 03/02/20 [Drisdol] Escitalopram [Lexapro] 20 mg PO DAILY 03/02/20 03/02/20 Ferrous Sulfate [Feosol] 325 mg PO TID-W/MEALS 03/02/20 03/02/20 Ibuprofen 600 mg PO Q6H PRN 03/02/20 03/02/20 Keto Fat Burn Supplement 1 cap PO DAILY 03/02/20 03/02/20 Levothyroxine Sodium [Euthyrox] 125 mcg PO DAILY 03/02/20 03/02/20 Rimegepant Sulfate [Nurtec Odt] 75 mg PO DAILY PRN 03/02/20 03/02/20 Previous Rx's Medication Instructions Recorded Doxycycline [Vibramycin] 100 mg PO BID 14 Days #28 capsule 03/02/20 metroNIDAZOLE [Flagyl] 500 mg PO BID 14 Days #28 tab 03/02/20 Allergies Allergy/AdvReac Type Severity Reaction Status Date / Time No Known Allergies Allergy Verified 06/07/20 04:32 Review of Systems ROS Statement: Those systems with pertinent positive or pertinent negative responses have been documented in the HPI. ROS Other: All systems not noted in ROS Statement are negative. Past Medical History Past Medical History: Deep Vein Thrombosis (DVT), Hyperlipidemia, Thyroid Disorder Additional Past Medical History / Comment(s): cervical cancer (May 2017) History of Any Multi-Drug Resistant Organisms: None Reported Past Surgical History: Section, Tubal Ligation, Uterine Ablation Past Psychological History: No Psychological Hx Reported Smoking Status: Former smoker Past Alcohol Use History: None Reported Past Drug Use History: None Reported General Exam Limitations: no limitations General appearance: alert, in no apparent distress Head exam: Present: atraumatic, normocephalic, normal inspection Eye exam: Present: normal appearance, PERRL, EOMI. Absent: scleral icterus, conjunctival injection, periorbital swelling ENT exam: Present: normal exam, mucous membranes moist Neck exam: Present: normal inspection. Absent: tenderness, meningismus, lymphadenopathy Respiratory exam: Present: normal lung sounds bilaterally. Absent: respiratory distress, wheezes, rales, rhonchi, stridor Cardiovascular Exam: Present: regular rate, normal rhythm, normal heart sounds. Absent: systolic murmur, diastolic murmur, rubs, gallop, clicks GI/Abdominal exam: Present: soft, normal bowel sounds. Absent: distended, tenderness, guarding, rebound, rigid Extremities exam: Present: normal inspection, full ROM, normal capillary refill. Absent: tenderness, pedal edema, joint swelling, calf tenderness Back exam: Present: normal inspection Neurological exam: Present: alert, oriented X3, CN II-XII intact Psychiatric exam: Present: normal affect, normal mood Skin exam: Present: warm, dry, intact, normal color. Absent: rash Course Vital Signs 06/07/20 06/07/20 04:30 06:33 Temperature 98.3 F Pulse Rate 88 78 Respiratory 18 16 Rate Blood Pressure 145/96 135/91 O2 Sat by Pulse 98 99 Oximetry - Reevaluation(s) Reevaluation #1: Medical record is reviewed Patient does have mild improvement here in the emergency department Patient informed of results questions answered Symptoms improved and patient is okay for discharge Medical Decision Making - Medical Decision Making 29 female DEL with headache. Patient states she has migraine no prior imaging, CT is negative. Symptoms are resolved and patient can be discharged home - Radiology Data Radiology results: report reviewed (CT brain is negative for acute disease), image reviewed Disposition Clinical Impression: Headache Disposition: HOME SELF-CARE Condition: Good Instructions (If sedation given, give patient instructions): Acute Headache (ED) Is patient prescribed a controlled substance at d/c from ED?: No Referrals: Jim Mchugh Jr, DO [Primary Care Provider] - 1-2 days
--- NOTE | 2020-06-07 06:02 | CT ---
EXAM: CT Head Without Intravenous Contrast CLINICAL HISTORY: ITS.REASON CT Reason: ramirez TECHNIQUE: Axial computed tomography images of the head/brain without intravenous contrast. CTDI is 49.27 mGy and DLP is 1260.4 mGy-cm. This CT exam was performed using one or more of the following dose reduction techniques: automated exposure control, adjustment of the mA and/or kV according to patient size, and/or use of iterative reconstruction technique. COMPARISON: No relevant prior studies available. FINDINGS: Brain: Unremarkable. No hemorrhage. No significant white matter disease. No edema. Ventricles: Unremarkable. No ventriculomegaly. Bones/joints: Unremarkable. No acute fracture. Soft tissues: Unremarkable. Sinuses: There is a 1.7 cm polyp or mucous retention cyst in the right sphenoid sinus. The remaining sinuses and mastoids appear unremarkable. Mastoid air cells: Unremarkable as visualized. No mastoid effusion. IMPRESSION: No acute findings in the head/brain.
[2020-06-07] MEDS ORDERED: HYDROmorphone 1 MG/ML 1 ML SYRINGE IVP STA (06:03)
[2020-06-07 06:37] VITALS: BP 135/91; PULSE 78; RESP 16
== END 2020-06-07 06:33 | disposition home or self-care (01) ==
LOC: EC 04:24
DX: R51.9 Headache, unspecified (principal); E78.5 Hyperlipidemia, unspecified; Z86.718 Personal history of other venous thrombosis and embolism; Z87.891 Personal history of nicotine dependence; Z85.41 Personal history of malignant neoplasm of cervix uteri
CPT/HCPCS: 70450; 99284; 96365; 96375; J1200; J0780; J2930; J1885

== ENCOUNTER 2023-03-04 09:09 | Emergency (ER) | payer OTHER ==
--- NOTE | 2023-03-04 09:40 | ED ---
General Adult HPI - General Source: patient, RN notes reviewed Mode of arrival: ambulatory Limitations: no limitations <Ulices Calvillo - Last Filed: 03/04/23 09:39> - General Source: patient, RN notes reviewed <Magalys Lim - Last Filed: 03/04/23 12:08> - General Stated complaint: CHest Congestion Time Seen by Provider: 03/04/23 09:39 - History of Present Illness Initial comments: 32-year-old female presents emergency Department chief complaint of cough and cold like symptoms. Patient states that she's having increasing nasal, chest congestion. Patient also states that she developed a rash on her hand. She states prior to this that she developed a rash on her scalp, upper arms and legs. Patient states her new rashes. Itching nature. (Ulices Calvillo) Patient is a 32-year-old female presented ER with chief complaint of cough and rash. Patient states for the past 4 days she's had a cough, low appetite, and congestion. She states she woke up this morning with a rash on her hands and forearms. Patient denies any new lotions, soaps, medications. She reports that it is itchy in nature. Patient denies any fevers, chills, night sweats. 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 (Magalys Lim) - Related Data Home Medications Medication Instructions Recorded Confirmed Aspirin/Acetaminophen/Caffeine 1 cap PO BID PRN 03/02/20 03/02/20 [Excedrin Migraine Caplet] Atorvastatin Calcium [Lipitor] 20 mg PO DAILY 03/02/20 03/02/20 Doxycycline Hyclate [Vibramycin] 100 mg PO BID 03/02/20 03/02/20 Ergocalciferol (Vitamin D2) 50,000 unit PO WE 03/02/20 03/02/20 [Drisdol] Escitalopram [Lexapro] 20 mg PO DAILY 03/02/20 03/02/20 Ferrous Sulfate [Feosol] 325 mg PO TID-W/MEALS 03/02/20 03/02/20 Ibuprofen 600 mg PO Q6H PRN 03/02/20 03/02/20 Keto Fat Burn Supplement 1 cap PO DAILY 03/02/20 03/02/20 Levothyroxine Sodium [Euthyrox] 125 mcg PO DAILY 03/02/20 03/02/20 Rimegepant Sulfate [Nurtec Odt] 75 mg PO DAILY PRN 03/02/20 03/02/20 Previous Rx's Medication Instructions Recorded Doxycycline [Vibramycin] 100 mg PO BID 14 Days #28 capsule 03/02/20 metroNIDAZOLE [Flagyl] 500 mg PO BID 14 Days #28 tab 03/02/20 Albuterol Inhaler [Ventolin Hfa 1 - 2 puff INHALATION Q6H PRN #1 03/04/23 Inhaler] each Albuterol Nebulized [Ventolin 2.5 mg INHALATION Q4H PRN #75 ml 03/04/23 Nebulized] dexAMETHasone [Taperdex Dose Pack] 1.5 mg PO DIRECTED #1 each 03/04/23 Allergies Allergy/AdvReac Type Severity Reaction Status Date / Time No Known Allergies Allergy Verified 03/04/23 10:00 Review of Systems ROS Other: All systems not noted in ROS Statement are negative. <Ulices Calvillo - Last Filed: 03/04/23 09:39> ROS Other: All systems not noted in ROS Statement are negative. <Magalys Lim - Last Filed: 03/04/23 12:08> ROS Statement: Those systems with pertinent positive or pertinent negative responses have been documented in the HPI. Past Medical History Past Medical History: Deep Vein Thrombosis (DVT), Hyperlipidemia, Thyroid Disorder Additional Past Medical History / Comment(s): cervical cancer (May 2017) History of Any Multi-Drug Resistant Organisms: None Reported Past Surgical History: Section, Tubal Ligation, Uterine Ablation Past Psychological History: No Psychological Hx Reported Smoking Status: Former smoker Past Alcohol Use History: None Reported Past Drug Use History: None Reported <Ulices Calvillo - Last Filed: 03/04/23 09:39> General Exam <Ulices Calvillo - Last Filed: 03/04/23 09:39> General appearance: alert, in no apparent distress ENT exam: Present: normal exam, normal oropharynx, mucous membranes moist, TM's normal bilaterally Neck exam: Present: normal inspection. Absent: tenderness, meningismus, lymphadenopathy Respiratory exam: Present: normal lung sounds bilaterally. Absent: respiratory distress, wheezes, rales, rhonchi, stridor Cardiovascular Exam: Present: regular rate, normal rhythm, normal heart sounds. Absent: systolic murmur, diastolic murmur, rubs, gallop, clicks Neurological exam: Present: alert, oriented X3, CN II-XII intact Psychiatric exam: Present: normal affect, normal mood Skin exam: Present: warm, dry, intact, normal color, rash (maculopapular erythematous rash on bilateral hands and forearms) <Magalys Lim - Last Filed: 03/04/23 12:08> - General Exam Comments Initial Comments: Visual Physical Exam Vital signs reviewed General: Well-appearing, nontoxic, no acute distress. Head: Normocephalic, atraumatic Eyes: PERRLA, EOMI ENT: Airway patent Chest: Nonlabored breathing Skin: No visual rash, normal skin tone Neuro: Alert and oriented 3 Musculoskeletal: No gross abnormalities (Ulices Calvillo) Course Vital Signs 03/04/23 03/04/23 03/04/23 09:58 10:50 11:54 Temperature 98.4 F 98.5 F 98.5 F Pulse Rate 113 H 99 97 Respiratory 18 16 16 Rate Blood Pressure 153/96 162/100 154/98 O2 Sat by Pulse 99 99 99 Oximetry Medical Decision Making <Ulices Calvillo - Last Filed: 03/04/23 09:39> - Radiology Data Radiology results: report reviewed, image reviewed <Magalys Lim - Last Filed: 03/04/23 12:08> - Medical Decision Making I completed the quick note portion of this chart signed Ulices Calvillo PA-C (Ulices Calvillo) Was pt. sent in by a medical professional or institution (SCOTTIE Mcfarland, DUPLICATOR PUNCH OPERATOR, urgent care, hospital, or jail...) When possible be specific @ -No Did you speak to anyone other than the patient for history (EMS, parent, family, police, friend...)? What history was obtained from this source @ -No Did you review nursing and triage notes (agree or disagree)? Why? @ -I reviewed and agree with nursing and triage notes Were old charts reviewed (outside hosp., previous admission, EMS record, old EKG, old radiological studies, urgent care reports/EKG's, jail records)? Report findings @ -No old charts were reviewed Differential Diagnosis (chest pain, altered mental status, abdominal pain women, abdominal pain men, vaginal bleeding, weakness, fever, dyspnea, syncope, headache, dizziness, GI bleed, back pain, seizure, CVA, palpatations, mental health, musculoskeletal)? @ -Differential Fever: Pneumonia, viral URI, endocarditis, myocarditis, pericarditis, otitis, sinusitis, peritonsillar Abscess, retropharyngeal Abscess, epiglottitis, peritonitis, appendicitis, Donna cystitis, diverticulitis, hepatitis, colitis, UTI, PID, TOA, pyelonephritis, prostatitis, epididymitis, meningitis, encephalitis, pulmonary embolism, CVA, thyroid storm, pancreatitis, adrenal crisis, cavernous sinus thrombosis, this is not meant to be an all- inclusive list. EKG interpreted by me (3pts min.). @ -None X-rays interpreted by me (1pt min.). @ -Chest x-ray shows right upper lung hazy airspace opacities which may correlate to atypical pneumonia. CT interpreted by me (1pt min.). @ -None done U/S interpreted by me (1pt. min.). @ -None done What testing was considered but not performed or refused? (CT, X-rays, U/S, labs)? Why? @ -None What meds were considered but not given or refused? Why? @ -None Did you discuss the management of the patient with other professionals (professionals i.e. , PA, DUPLICATOR PUNCH OPERATOR, lab, RT, psych nurse, social service worker, heating and refrigeration inspector, teacher, community services officer, case manager specialist)? Give summary @ -No Was smoking cessation discussed for >3mins.? @ -No Was critical care preformed (if so, how long)? @ -No Were there social determinants of health that impacted care today? How? (Homelessness, low income, unemployed, alcoholism, drug addiction, transportation, low edu. Level, literacy, decrease access to med. care, [facility], rehab)? @ -No Was there de-escalation of care discussed even if they declined (Discuss DNR or withdrawal of care, Hospice)? DNR status @ -No What co-morbidities impacted this encounter? (DM, HTN, Smoking, COPD, CAD, Cancer, CVA, ARF, Chemo, Hep., AIDS, mental health diagnosis, sleep apnea, morbid obesity)? @ -Psoriasis Was patient admitted / discharged? Hospital course, mention meds given and rout e, prescriptions, significant lab abnormalities, going to OR and other pertinent info. @ -Discharge. Patient is a 32-year-old female presented ER with chief complaint of cough and rash. Upon examination patient admitted to the papular rash on bilateral hands with edema noted. Patient's lungs were clear to auscultation bilaterally. Viral swabs obtained in the ER were positive for COVID-19. Chest x-ray showed a right upper lung hazy airspace opacity which may be correlated to atypical pneumonia. Patient received by mouth Benadryl for rash in the ER. Patient will be discharged with a prescription for albuterol inhaler, nebulized albuterol, and dexamethasone. I advised patient to follow-up with primary care physician in the next 1-2 days for repeat chest x-ray. Patient will be discharged stable condition with follow-up to PCP. Return parameters were discussed. Patient expressed understanding and agreement with care plan. Undiagnosed new problem with uncertain prognosis? @ -No Drug Therapy requiring intensive monitoring for toxicity (Heparin, Nitro, Insulin, Cardizem)? @ -No Were any procedures done? @ -No Diagnosis/symptom? @ -COVID-19/ rash Acute, or Chronic, or Acute on Chronic? @ -Acute Uncomplicated (without systemic symptoms) or Complicated (systemic symptoms)? @ -Uncomplicated Side effects of treatment? @ -No Exacerbation, Progression, or Severe Exacerbation? @ -No Poses a threat to life or bodily function? How? (Chest pain, USA, [place], pneumonia, PE, COPD, DKA, ARF, appy, cholecystitis, CVA, Diverticulitis, Homicidal, Suicidal, threat to staff... and all critical care pts) @ -No (Magalys Lim) - Lab Data Lab Results 03/04/23 Range/Units 10:13 Influenza Type A (PCR) Not Detected (Not Detectd) Influenza Type B (PCR) Not Detected (Not Detectd) RSV (PCR) Not Detected (Not Detectd) SARS-CoV-2 (PCR) Detected A (Not Detectd) Disposition <Ulices Calvillo - Last Filed: 03/04/23 09:39> Is patient prescribed a controlled substance at d/c from ED?: No Time of Disposition: 11:48 <Magalys Lim - Last Filed: 03/04/23 12:08> Clinical Impression: COVID-19 Disposition: HOME SELF-CARE Condition: Stable Additional Instructions: Please return to the Emergency Department if symptoms worsen or any other concerns. Prescriptions: dexAMETHasone [Taperdex Dose Pack] 1.5 mg PO DIRECTED #1 each Albuterol Inhaler [Ventolin Hfa Inhaler] 1 - 2 puff INHALATION Q6H PRN #1 each PRN Reason: Shortness Of Breath Albuterol Nebulized [Ventolin Nebulized] 2.5 mg INHALATION Q4H PRN #75 ml PRN Reason: difficulty in breathing Referrals: Kurtis Roberts NPC [Nurse Practitioner] - 1-2 days
[2023-03-04 11:14] VITALS: RESP 16; TEMP 98.5
[2023-03-04] MEDS ORDERED: diphenhydrAMINE 50 MG CAP PO STA (11:15)
--- NOTE | 2023-03-04 11:34 | XR ---
EXAMINATION TYPE: XR chest 2V DATE OF EXAM: 03/04/2023 11:23 AM CLINICAL INDICATION:Female, 32 years old with history of sob; [facility] COMPARISON: Chest radiographs from 01/20/2018. TECHNIQUE: XR chest 2V Frontal and lateral views of the chest. FINDINGS: Lungs/Pleura: Right upper lung airspace opacity. There is no evidence of pleural effusion, focal cons olidation, or pneumothorax. Pulmonary vascularity: Unremarkable. Heart/mediastinum: Cardiomediastinal silhouette is unremarkable. Musculoskeletal: No acute osseous pathology. Other findings: None IMPRESSION: Right upper lung hazy airspace opacities correlate for atypical pneumonia
[2023-03-04 12:01] VITALS: BP 154/98; PULSE 97
== END 2023-03-04 11:55 | disposition home or self-care (01) ==
LOC: EC 09:09
DX: U07.1 COVID-19 (principal); E78.5 Hyperlipidemia, unspecified; E07.9 Disorder of thyroid, unspecified; Z79.890 Hormone replacement therapy; Z79.899 Other long term (current) drug therapy; Z79.82 Long term (current) use of aspirin; Z87.891 Personal history of nicotine dependence
CPT/HCPCS: 71046; 87636; 99284

== ENCOUNTER 2023-04-24 18:08 | Emergency (ER) | payer OTHER ==
--- NOTE | 2023-04-24 18:24 | ED ---
General Adult HPI - General Source: patient, RN notes reviewed Mode of arrival: ambulatory Limitations: no limitations <Lizzy Heredia - Last Filed: 04/24/23 18:20> - General Source: patient, RN notes reviewed, old records reviewed <Loc Mckinney - Last Filed: 04/24/23 23:40> - General Chief complaint: Upper Respiratory Infection Stated complaint: SOB Time Seen by Provider: 04/24/23 18:20 - History of Present Illness Initial comments: This is a 32 year old female who presents to the emergency department for coughing and congestion. Symptoms started 8 days ago. She went to urgent care several days ago and was diagnosed with bronchitis. She was started on Azithromycin and Prednisone, which she has finished, however she has not gotten any better. 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 (Lizzy Heredia) Patient is a 32-year-old female presents emergency department complaining of upper respiratory symptoms. Originally evaluated as a quick note. Workup originally consisted of viral swabs and chest x-ray. Patient has been having a 1 week history of coughing and congestion. Completed a course of azithromycin and prednisone however she is still having symptoms. 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 Presents for further evaluation at this time. Denies any nausea, vomiting, diarrhea, chest pain. Primarily cough that is what relatively nonproductive as well as rhinorrhea. Patient is a non-smoker. No history of asthma. (Loc Mckinney) - Related Data Home Medications Medication Instructions Recorded Confirmed Aspirin/Acetaminophen/Caffeine 1 cap PO BID PRN 03/02/20 03/02/20 [Excedrin Migraine Caplet] Atorvastatin Calcium [Lipitor] 20 mg PO DAILY 03/02/20 03/02/20 Doxycycline Hyclate [Vibramycin] 100 mg PO BID 03/02/20 03/02/20 Ergocalciferol (Vitamin D2) 50,000 unit PO WE 03/02/20 03/02/20 [Drisdol] Escitalopram [Lexapro] 20 mg PO DAILY 03/02/20 03/02/20 Ferrous Sulfate [Feosol] 325 mg PO TID-W/MEALS 03/02/20 03/02/20 Ibuprofen 600 mg PO Q6H PRN 03/02/20 03/02/20 Keto Fat Burn Supplement 1 cap PO DAILY 03/02/20 03/02/20 Levothyroxine Sodium [Euthyrox] 125 mcg PO DAILY 03/02/20 03/02/20 Rimegepant Sulfate [Nurtec Odt] 75 mg PO DAILY PRN 03/02/20 03/02/20 Previous Rx's Medication Instructions Recorded Doxycycline [Vibramycin] 100 mg PO BID 14 Days #28 capsule 03/02/20 metroNIDAZOLE [Flagyl] 500 mg PO BID 14 Days #28 tab 03/02/20 Albuterol Inhaler [Ventolin Hfa 1 - 2 puff INHALATION Q6H PRN #1 03/04/23 Inhaler] each Albuterol Nebulized [Ventolin 2.5 mg INHALATION Q4H PRN #75 ml 03/04/23 Nebulized] dexAMETHasone [Taperdex Dose Pack] 1.5 mg PO DIRECTED #1 each 03/04/23 predniSONE 10 mg PO DAILY #20 tab 03/04/23 Albuterol Inhaler [Ventolin Hfa 1 puff INHALATION QID #8 gm 04/24/23 Inhaler] Amoxic-Pot Clav 875-125Mg 1 tab PO Q12HR 7 Days #14 tab 04/24/23 [Augmentin 875-125] predniSONE [Deltasone] 40 mg PO DAILY 5 Days #10 tab 04/24/23 Allergies Allergy/AdvReac Type Severity Reaction Status Date / Time doxycycline Allergy Vomiting Verified 04/24/23 18:25 Review of Systems ROS Other: All systems not noted in ROS Statement are negative. <Lizzy Heredia - Last Filed: 04/24/23 18:20> ROS Other: All systems not noted in ROS Statement are negative. <Loc Mckinney - Last Filed: 04/24/23 23:40> ROS Statement: Those systems with pertinent positive or pertinent negative responses have been documented in the HPI. Review of Systems: CONST: Denies fever EYES: Denies blurry vision ENT: Endorses nasal congestion C/V: Denies Chest pain RESP: Denies shortness of breath GI: Denies abdominal pain : Denies dysuria SKIN: Denies rash. MSK: Denies joint pain. NEURO: Denies headache (Loc Mckinney) Past Medical History Past Medical History: Deep Vein Thrombosis (DVT), Hyperlipidemia, Thyroid Disorder Additional Past Medical History / Comment(s): cervical cancer (May 2017) History of Any Multi-Drug Resistant Organisms: None Reported Past Surgical History: Section, Tubal Ligation, Uterine Ablation Past Psychological History: No Psychological Hx Reported Smoking Status: Former smoker Past Alcohol Use History: None Reported Past Drug Use History: None Reported <Lizzy Heredia - Last Filed: 04/24/23 18:20> General Exam <Lizzy Heredia - Last Filed: 04/24/23 18:20> <Loc Mckinney - Last Filed: 04/24/23 23:40> - General Exam Comments Initial Comments: Visual Physical Exam Vital signs reviewed General: Well-appearing, nontoxic, no acute distress. Head: Normocephalic, atraumatic Eyes: PERRLA, EOMI ENT: Airway patent Chest: Nonlabored breathing Skin: No visual rash, normal skin tone Neuro: Alert and oriented 3 Musculoskeletal: No gross abnormalities (Lizzy Heredia) General: Appears in no acute distress. HEAD: Normal with no signs of head trauma. EYES: EOMI. ENT: Hearing grossly intact. Rhinorrhea. RESPIRATORY: No respiratory distress. Clear breath sounds bilaterally. No ataxia. No increased work of breathing. No respiratory distress. Mild central wheezing. C/V: Regular rate and rhythm. ABD: Abdomen is nondistended. EXT: No obvious deformity. SKIN: No rashes or lesions observed on exposed skin. NEURO: Alert and oriented. (Loc Mckinney) Course Vital Signs 04/24/23 04/24/23 18:22 20:03 Temperature 98.7 F 98.3 F Pulse Rate 112 H 102 H Respiratory 24 18 Rate Blood Pressure 136/93 O2 Sat by Pulse 99 95 Oximetry Medical Decision Making <Lizzy Heredia - Last Filed: 04/24/23 18:20> <Loc Mckinney - Last Filed: 04/24/23 23:40> - Medical Decision Making I performed the QuickNote portion of this chart. Signed Lizzy Heredia PA-C. (Lizzy Heredia) Was pt. sent in by a medical professional or institution (SCOTTIE Mcfarland, CONSULTANT [employer]. VICE PRESIDENT [employer] ), urgent care, hospital, or half-way...) When possible be specific @ -No Did you speak to anyone other than the patient for history (EMS, parent, family, police, friend...)? What history was obtained from this source @ -No Did you review nursing and triage notes (agree or disagree)? Why? @ -I reviewed and agree with nursing and triage notes Were old charts reviewed (outside hosp., previous admission, EMS record, old EKG, old radiological studies, urgent care reports/EKG's, half-way records)? Report findings @ -Old charts reviewed Differential Diagnosis (chest pain, altered mental status, abdominal pain women, abdominal pain men, vaginal bleeding, weakness, fever, dyspnea, syncope, headache, dizziness, GI bleed, back pain, seizure, CVA, palpatations, mental health, musculoskeletal)? @ -COVID, flu, sinusitis, viral infection, pneumonia. This list is not all inclusive. EKG interpreted by me (3pts min.). @ -None done X-rays interpreted by me (1pt min.). @ -Chest x-ray reveals no obvious acute cardiopulmonary process. CT interpreted by me (1pt min.). @ -None done U/S interpreted by me (1pt. min.). @ -None done What testing was considered but not performed or refused? (CT, X-rays, U/S, labs)? Why? @ -None What meds were considered but not given or refused? Why? @ -None Did you discuss the management of the patient with other professionals (professionals i.e. , PA, CONSULTANT [employer]Y [employer]. VICE PRESIDENT [employer] ([employer] ), lab, RT, psych nurse, social worker delinquency prevention, access control officer, teacher, corporate development officer, employment evaluator/case manager)? Give summary @ -No Was smoking cessation discussed for >3mins.? @ -No Was critical care preformed (if so, how long)? @ -No Were there social determinants of health that impacted care today? How? (Homelessness, low income, unemployed, alcoholism, drug addiction, transportation, low edu. Level, literacy, decrease access to med. care, retirement, rehab)? @ -No Was there de-escalation of care discussed even if they declined (Discuss DNR or withdrawal of care, Hospice)? DNR status @ -No What co-morbidities impacted this encounter? (DM, HTN, Smoking, COPD, CAD, Cancer, CVA, ARF, Chemo, Hep., AIDS, mental health diagnosis, sleep apnea, morbid obesity)? @ -None Was patient admitted / discharged? Hospital course, mention meds given and route, prescriptions, significant lab abnormalities, going to OR and other pertinent info. @ -Patient started as a quick note workup. I evaluate patient when she was placed in a room. Has had upper respiratory infectious symptoms for the last 1 week. Completed a course of antibiotics as well as prednisone without much improvement in symptoms. Presents for further evaluation. Vital signs are within acceptable limits. Viral swabs are negative. Chest x-ray shows no obvious acute cardiopulmonary process. I did discuss this with the patient. 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 We will therefore empirically place the patient on antibiotics for tracheobronchitis and she will be treated with albuterol inhaler as well as prednisone as she does have some wheezing present. Likely diagnosis is bronchitis. She was in agreement with this plan. I will provide the patient with a prescription for albuterol, prednisone, Augmentin. I instructed the patient to follow up with their PCP in the next 1-3 days. . I explained that the patient should return to the emergency department if they experience any worsening symptoms. Strict return precautions were discussed with the patient. The patient expressed understanding of these instructions. I answered all questions that the patient had. The patient was discharged home in good condition with their prescriptions and follow up information. Undiagnosed new problem with uncertain prognosis? @ -No Drug Therapy requiring intensive monitoring for toxicity (Heparin, Nitro, Insulin, Cardizem)? @ -No Were any procedures done? @ -No Diagnosis/symptom? @ -Tracheobronchitis Acute, or Chronic, or Acute on Chronic? @ -Acute Uncomplicated (without systemic symptoms) or Complicated (systemic symptoms)? @ -Complicated Side effects of treatment? @ -No Exacerbation, Progression, or Severe Exacerbation? @ -No Poses a threat to life or bodily function? How? (Chest pain, [place], [place], pneumonia, PE, COPD, DKA, ARF, appy, cholecystitis, CVA, Diverticulitis, Homicidal, Suicidal, threat to staff... and all critical care pts) @ -No (Loc Mckinney) - Lab Data Lab Results 04/24/23 Range/Units 18:26 Influenza Type A (PCR) Not Detected (Not Detectd) Influenza Type B (PCR) Not Detected (Not Detectd) RSV (PCR) Not Detected (Not Detectd) SARS-CoV-2 (PCR) Not Detected (Not Detectd) Disposition <Lizzy Heredia - Last Filed: 04/24/23 18:20> Is patient prescribed a controlled substance at d/c from ED?: No Time of Disposition: 19:45 <Loc Mckinney - Last Filed: 04/24/23 23:40> Clinical Impression: Tracheobronchitis Disposition: HOME SELF-CARE Condition: Good Instructions (If sedation given, give patient instructions): Acute Bronchitis (ED) Prescriptions: Amoxic-Pot Clav 875-125Mg [Augmentin 875-125] 1 tab PO Q12HR 7 Days #14 tab predniSONE [Deltasone] 40 mg PO DAILY 5 Days #10 tab Albuterol Inhaler [Ventolin Hfa Inhaler] 1 puff INHALATION QID #8 gm Referrals: Kurtis Roberts, [place] [Nurse Practitioner] - 1-2 days
--- NOTE | 2023-04-24 18:36 | XR ---
EXAMINATION TYPE: XR chest 2V DATE OF EXAM: 04/24/2023 6:32 PM CLINICAL INDICATION:Female, 32 years old with history of ELLI; [facility] COMPARISON: 03/04/2023 TECHNIQUE: XR chest 2V Frontal and lateral views of the chest. FINDINGS: Lungs/Pleura: There is no evidence of pleural effusion, focal consolidation, or pneumothorax. Pulmonary vascularity: Unremarkable. Heart/mediastinum: Cardiomediastinal silhouette is unremarkable. Musculoskeletal: No acute osseous pathology. Other findings: None IMPRESSION: No acute cardiopulmonary disease/process.
[2023-04-24] MEDS ORDERED: AMOXIC-POT CLAV 875-125MG 1 EACH TAB PO STA (19:48)
[2023-04-24] MEDS ORDERED: predniSONE 20 MG TAB PO STA (19:48)
[2023-04-24 20:16] VITALS: BP 136/93; PULSE 102; RESP 18; TEMP 98.3
== END 2023-04-24 20:03 | disposition home or self-care (01) ==
LOC: EC 18:08
DX: J40 Bronchitis, not specified as acute or chronic (principal); E78.5 Hyperlipidemia, unspecified; E07.9 Disorder of thyroid, unspecified; Z79.52 Long term (current) use of systemic steroids; Z79.890 Hormone replacement therapy; Z79.899 Other long term (current) drug therapy; Z79.82 Long term (current) use of aspirin; Z88.8 Allergy status to other drugs, medicaments and biological substances; Z87.891 Personal history of nicotine dependence; Z20.822 Contact with and (suspected) exposure to COVID-19
CPT/HCPCS: 87636; 71046; 99285; J7512